=== PATIENT | female | born 1955 | race Caucasian/White ===

== ENCOUNTER 2017-04-23 12:33 | Emergency (ER) | payer OTHER ==
--- NOTE | 2017-04-23 12:40 | PDOC ---
History of Present Illness - General History Source: Patient Exam Limitations: No Limitations - History of Present Illness Initial Comments: 04/23/17 12:48 The patient is a 61 year old female brought via EMS from [facility], with a significant past medical history of HTN, HLD and asthma who presents to the emergency department with shortness of breath since yesterday. She reports that she was asking for her breathing treatment yesterday but was not given it till today. She reports wheezing and chest tightness associated with her chief complaint. She reports that she has been on steroids in the past for her shortness of breath. EMS states that the patient is bradycardic on baseline and is hypotensive daily. The patient is currently on Coumadin. She reports that her INR has not been checked in some time. She also reports that her right lower extremity is chronically more swollen than her left lower extremity. The patient denies chest pain, headache and dizziness. Denies fever, chills, nausea, vomit, diarrhea and constipation. Denies dysuria, frequency, urgency and hematuria. Allergies: Penicillin, poultry, seafood Past surgical history: Hysterectomy, myxoma removal (2008), right tibia fracture repair Social history: Cigarette use (4 daily), marijuana, tranquilizers and heroin. <Juan Manuel Gonzales - Last Filed: 04/23/17 12:54> <Estephania Martins - Last Filed: 04/23/17 16:57> - General Chief Complaint: Respiratory Distress Stated Complaint: diff breathing Time Seen by Provider: 04/23/17 12:40 Past History <Juan Manuel Gonzales - Last Filed: 04/23/17 12:54> - Past Medical History Anemia: No Asthma: Yes Cancer: No Cardiac Disorders: Yes (myxoma removal) CVA: No COPD: No CHF: No Dementia: No Diabetes: No GI Disorders: No Disorders: No HTN: Yes (on med) Hypercholesterolemia: Yes Kidney Stones: No Liver Disease: No Seizures: Yes (last 1986) Thyroid Disease: No - Surgical History Abdominal Surgery: No Appendectomy: No Cardiac Surgery: Yes (myxoma removal 2008,) Cholecystectomy: No Lung Surgery: No Neurologic Surgery: No Orthopedic Surgery: Yes (RIGHT TIBIA FX 14 YEARS OLD) - Reproductive History PID: No - Suicide/Smoking/Psychosocial Hx Smoking History: Current every day smoker Have you smoked in the past 12 months: Yes Number of Cigarettes Smoked Daily: 5 Cigars Per Day: 0 'Breaking Loose' booklet given: 04/20/17 Hx Alcohol Use: No Drug/Substance Use Hx: Yes Substance Use Type: Heroin, Marijuana, Tranquilizers Hx Substance Use Treatment: Yes (2012) <Estephania Martins - Last Filed: 04/23/17 16:57> - Past Medical History Allergies/Adverse Reactions: Allergies Allergy/AdvReac Type Severity Reaction Status Date / Time Penicillins Allergy Intermediate Hives Verified 04/23/17 13:04 poultry Allergy Mild Itching Uncoded 04/23/17 13:04 seafood Allergy Mild Itching Uncoded 04/23/17 13:04 Home Medications: Ambulatory Orders Fluticasone Propionate [Flovent Hfa] 1 puff IH BID 08/15/12 Warfarin Na [Coumadin] 5 mg PO HS 08/15/12 Albuterol Sulfate Inhaler - [Ventolin Hfa Inhaler -] 2 inh PO Q4H PRN 04/20/17 Clonidine HCl [Catapres -] 0.2 mg PO BID 04/20/17 Diphenhydramine HCl [Benadryl -] 25 mg PO HS PRN 04/20/17 Acetaminophen [Tylenol] 325 mg PO Q4HWA 04/23/17 Diazepam 10 mg PO BID 04/23/17 Guaifenesin [Robitussin -] 100 mg PO Q4H 04/23/17 Loperamide HCl [Loperamide] 2 mg PO PRN PRN 04/23/17 Mag Hydrox/Al Hydrox/Simeth [Mylanta *Suspension*] 30 ml PO ONCE 04/23/17 Magnesium Hydroxide [Milk of Magnesia -] 30 ml PO DAILY 04/23/17 Magnesium Hydroxide [Milk of Magnesia -] 30 ml PO DAILY 04/23/17 Methadone HCl 10 mg PO DAILY 04/23/17 Ranitidine HCl 150 mg PO BID 04/23/17 Sodium Chloride Nasal [place] [[place]al [place] -] 0 NS TID 04/23/17 Warfarin Sodium 5 mg PO DAILY 04/23/17 Review of Systems - Review of Systems Able to Perform ROS?: Yes Comments:: 04/23/17 12:49 GENERAL/CONSTITUTIONAL: No fever or chills. No weakness. HEAD, EYES, EARS, NOSE AND THROAT: No change in vision. No ear pain or discharge. No sore throat.- CARDIOVASCULAR: (+) Shortness of breath, chest tightness RESPIRATORY: (+) Wheezing. No cough, hemoptysis. GASTROINTESTINAL: No nausea, vomiting, diarrhea or constipation. GENITOURINARY: No dysuria, frequency, or change in urination. MUSCULOSKELETAL: No joint or muscle swelling or pain. No neck or back pain. SKIN: No rash NEUROLOGIC: No headache, vertigo, loss of consciousness, or change in strength/ sensation. ENDOCRINE: No increased thirst. No abnormal weight change HEMATOLOGIC/LYMPHATIC: No anemia, easy bleeding, or history of blood clots. ALLERGIC/IMMUNOLOGIC: No hives or skin allergy. <Juan Manuel Gonzales - Last Filed: 04/23/17 12:54> *Physical Exam - Physical Exam Comments: 04/23/17 12:49 GENERAL: Awake, alert, and fully oriented, in no acute distress, Speaking in complete sentences. HEAD: No signs of trauma, normocephalic, atraumatic EYES: PERRLA, EOMI, sclera anicteric, conjunctiva clear ENT: Auricles normal inspection, hearing grossly normal, nares patent, oropharynx clear without exudates. Moist mucosa NECK: Normal ROM, supple, no lymphadenopathy, JVD, or masses LUNGS: (+) Diffused wheezing bilaterally with good air entry, no accessory muscle use, no tachypnia. HEART: Regular rate and rhythm, normal S1 and S2, no murmurs, rubs or gallops, peripheral pulses normal and equal bilaterally. ABDOMEN: Soft, nontender, normoactive bowel sounds. No guarding, no rebound. No masses EXTREMITIES : (+) Chronic right sided lower extremity edema, Normal range of motion, no edema. No clubbing or cyanosis. NEUROLOGICAL: Cranial nerves II through XII grossly intact. Normal speech, normal gait, no focal sensorimotor deficits SKIN: Warm, Dry, normal turgor, no rashes or lesions noted. <Juan Manuel Gonzales - Last Filed: 04/23/17 12:54> ED Treatment Course - LABORATORY CBC & Chemistry Diagram: 04/23/17 14:34 04/23/17 14:34 <Estephania Martins - Last Filed: 04/23/17 16:57> Medical Decision Making - Medical Decision Making 04/23/17 16:48 Pt presents to the ED complaining of wheezing and shortness of breath consistent with prior asthma exacerbations. Some improvement with nebs given by EMS. 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 On my exam, patient had diffuse wheezes, but was speaking in complete sentences and was not tachycardic or hypoxic. Given nebs and prednisone in the ED with complete resolution of her symptoms. INR is therapeutic--given the drastic improvement in her symptoms with nebs and her therapeutic INR, PE is unlikely. [facility]. 04/23/17 16:49 <Estephania Martins - Last Filed: 04/23/17 16:57> *DC/Admit/Observation/Transfer - Attestations Scribe Attestion: 04/23/17 12:49 Documentation prepared by Juan Manuel Gonzales, acting as medical apparatus model maker for Estephania Martins MD <Juan Manuel Gonzales - Last Filed: 04/23/17 12:54> - Discharge Dispostion Admit: No <Estephania Martins - Last Filed: 04/23/17 16:57> Diagnosis at time of Disposition: Asthma - Discharge Dispostion Disposition: HOME Condition at time of disposition: Good - Patient Instructions Printed Discharge Instructions: DI for Asthma -- Adult Additional Instructions: return to the ED for severe wheezing or shortness of breath that does not improve with two neb treatments. MAke sure that you see your doctor within two days. Continue to take your prednisone and use your inhaler as needed.
[2017-04-23 13:04] VITALS: BMI 33.9
[2017-04-23] MEDS ORDERED: ALBUTEROL SO4 2.5/IPRATROPIUM 0.5 INH SOL 3 ML VIAL.NEB. NEB ONE ×4 (14:10→17:03)
[2017-04-23] MEDS: predniSONE 20 MG TABLET (UD) PO ONE ×2 (14:14→14:23)
[2017-04-23] MEDS ORDERED: predniSONE 20 MG TABLET (UD) ONE (14:14)
[2017-04-23] MEDS ORDERED: predniSONE 20 MG TABLET (UD) PO ONE (14:21)
[2017-04-23 14:49] LABS: BASOPHIL 0.7 % (0-2.0); EOSINOPHIL 0.7 % (0-4.5); MCHC 33.5 g/dl (32.0-36.0); MEAN CELL VOLUME 92.6 fl (80-96); MEAN PLT VOLUME 8.7 fl (7.5-11.1); NEUTROPHILS 68.5 % (42.8-82.8); PLATELET COUNT 254 K/MM3 (134-434); RDW 13.8 % (11.6-15.6)
[2017-04-23 15:07] LABS: INR 2.28 (0.82-1.09); PROTHROMBIN TIME (PATIENT) 25.5 SEC (9.98-11.88)
[2017-04-23 15:10] LABS: ACTIVATED PTT 39.9 SECONDS (26.9-34.4)
[2017-04-23 15:14] LABS: ALBUMIN 2.6 g/dl (3.4-5.0); ANION GAP 5 (8-16); CALCIUM 8.9 mg/dL (8.5-10.1); CO2 28 mmol/L (21-32); CREATININE 0.7 mg/dL (0.55-1.02); GLUCOSE,RANDOM 128 mg/dL (74-106); SGOT/AST 23 U/L (15-37); SGPT/ALT 14 U/L (12-78)
[2017-04-23 15:19] LABS: ALK PHOS 74 U/L (45-117); BILIRUBIN,TOTAL 0.2 mg/dL (0.2-1.0); CPK 138 IU/L (26-192); TOT PROT 7.1 g/dl (6.4-8.2); TROPONIN I < 0.02 ng/ml (0.00-0.05)
[2017-04-23] MEDS ORDERED: ALBUTEROL SO4 2.5/IPRATROPIUM 0.5 INH SOL 3 ML VIAL.NEB. NEB SCH (16:45)
[2017-04-23 17:29] VITALS: BP 93/67; PULSE 64; TEMP 97.8
--- NOTE | 2017-04-26 09:45 | EKG ---
Test Reason : Blood Pressure : / mmHG Vent. Rate : 056 BPM Atrial Rate : 056 BPM P-R Int : 158 ms QRS Dur : 080 ms QT Int : 480 ms P-R-T Axes : 059 053 063 degrees QTc Int : 463 ms SINUS BRADYCARDIA POSSIBLE LEFT ATRIAL ENLARGEMENT NONSPECIFIC T WAVE ABNORMALITY ABNORMAL ECG WHEN COMPARED WITH ECG OF 20-APR-2017 18:57, QT HAS LENGTHENED Confirmed by PAPI CARRILLO, HAN ([id number]) on 04/26/2017 9:44:44 AM Referred By: Confirmed By:HAN TURPIN MD
== END 2017-04-23 19:21 | disposition other institution (70) ==
LOC: JER 12:33
PROC: 3E0F7GC Introduction of Other Therapeutic Substance into Respiratory Tract, Via Natural or Artificial Opening (ICD-10-PCS; principal; 2017-04-23)
PROC: 3E0F7GC Introduction of Other Therapeutic Substance into Respiratory Tract, Via Natural or Artificial Opening (ICD-10-PCS; 2017-04-23)
PROC: 3E0F7GC Introduction of Other Therapeutic Substance into Respiratory Tract, Via Natural or Artificial Opening (ICD-10-PCS; 2017-04-23)
DX: J45.901 Unspecified asthma with (acute) exacerbation (principal); I10 Essential (primary) hypertension; E78.5 Hyperlipidemia, unspecified; F17.210 Nicotine dependence, cigarettes, uncomplicated; Z86.718 Personal history of other venous thrombosis and embolism; Z79.01 Long term (current) use of anticoagulants
CPT/HCPCS: 36415; 71010-TC; 80053; 84484; 85025; 85610; 85730; 93005; 93010; 94640; 99283-25